=== PATIENT | female | born 1955 | race Caucasian/White ===

== ENCOUNTER 2024-04-03 08:50 | Emergency (ER) | payer MEDICARE, MEDICAID, SELFPAY ==
[2024-04-03 08:52] VITALS: BP 177/80; PULSE 82; RESP 18; TEMP 36.4; O2SAT 97; BMI 31.1
--- NOTE | 2024-04-03 09:27 | XR_ITS ---
PROCEDURE INFORMATION: Exam: XR Right Femur Exam date and time: 04/03/2024 10:02 AM Age: 69 years old Clinical indication: Injury or trauma; Other: Pain after fall TECHNIQUE: Imaging protocol: Radiologic exam of the right femur. Views: 2 views. COMPARISON: CT BONY PELVIS 04/03/2024 9:55 AM FINDINGS: Bones/joints: Unremarkable. No acute fracture. Soft tissues: Unremarkable. IMPRESSION: No acute findings.
--- NOTE | 2024-04-03 09:27 | CT_ITS ---
PROCEDURE INFORMATION: Exam: CT Pelvis Without Contrast, Skeleton Exam date and time: 04/03/2024 9:55 AM Age: 69 years old Clinical indication: Injury or trauma; Other: Bilateral hip pain after fall; Additional info: Fall, b/l hip r>l TECHNIQUE: Imaging protocol: Computed tomography of the pelvis without contrast. Exam focused on the skeleton. Radiation optimization: All CT scans at this facility use at least one of these dose optimization techniques: automated exposure control; mA and/or kV adjustment per patient size (includes targeted exams where dose is matched to clinical indication); or iterative reconstruction. COMPARISON: CT LUMBAR SPINE WO CON 04/03/2024 9:52 AM FINDINGS: Bones/joints: Unremarkable. No acute fracture. No dislocation. Soft tissues: Unremarkable. IMPRESSION: No acute findings.
--- NOTE | 2024-04-03 09:27 | CT_ITS ---
PROCEDURE INFORMATION: Exam: CT Lumbar Spine Without Contrast Exam date and time: 04/03/2024 9:52 AM Age: 69 years old Clinical indication: Pain; Other: Fall; Additional info: Fall, midline pain TECHNIQUE: Imaging protocol: Computed tomography of the lumbar spine without contrast. Radiation optimization: All CT scans at this facility use at least one of these dose optimization techniques: automated exposure control; mA and/or kV adjustment per patient size (includes targeted exams where dose is matched to clinical indication); or iterative reconstruction. COMPARISON: No relevant prior studies available. FINDINGS: Bones/joints: There is preservation of vertebral alignment. There is preservation of vertebral body heights. Facet joints are aligned. No acute fracture. L1-L2: No significant disc bulge or herniation. No severe spinal canal stenosis. No significant neural foraminal narrowing. L2-L3: No significant disc bulge or herniation. No severe spinal canal stenosis. No significant neural foraminal narrowing. L3-L4: No significant disc bulge or herniation. No severe spinal canal stenosis. No significant neural foraminal narrowing. L4-L5: Diffuse disc bulge and facet arthropathy noted. There is mild spinal canal stenosis. There is moderate bilateral neural foraminal narrowing. L5-S1: Diffuse disc bulge and facet arthropathy noted. No significant spinal canal stenosis. There is mild bilateral neural foraminal narrowing. Soft tissues: Unremarkable. IMPRESSION: No acute fracture. No traumatic subluxation.
[2024-04-03 09:30] VITALS: BP 153/73; PULSE 82; O2SAT 97
--- NOTE | 2024-04-03 09:34 | ED_ITS ---
Discharge Plan Disposition Chief Complaint: PAIN Prescriptions Prescriptions: New lidocaine 5 % adhesive patch,medicated 1 patch topical DAILY Qty: 15 0RF Rx Instructions: leave on most painful area for up to 12 hrs methocarbamol 500 mg tablet 1,000 mg PO Q8H PRN (Reason: muscle pain and spasm) Qty: 24 0RF Referrals Follow up/Referrals: Kyrie Wilde II, [Primary Care Provider] - See instructions Activity Restrictions/Add. Instructions Additional Instructions/Restrictions: At this time it was felt you are safe to be discharged home. If new or worsening symptoms please do not hesitate to return the emergency department. If your symptoms persist in the next 5 to 7 days please follow-up with your family doctor for possible physical therapy evaluation. For pain please take Tylenol 1000 mg every 6 hours as needed and combine with your prescriptions as prescribed. Clinical Impressions Clinical Impression: Acute hip pain, Fall Print Language Print Language: German Discharge ED Provider: Marvin Raya General Adult HPI General Chief complaint: PAIN Stated complaint: AO 03/31/24, rt hip inj Time Seen by Provider: 04/03/24 09:03 Mode of Arrival: Ambulatory Source of Information: Patient and Spouse Limitations: No Limitations Description of Symptoms (Recalled from ER Triage Doc. by RN): r hip and pelvis pain after a fall History of Present Illness HPI narrative: Patient is a 69-year-old female who presents emergency department for evaluation of traumatic hip pain. History is obtained by patient at bedside. A few days ago she was loading a refrigerator into a vehicle when she fell on her right hip. This originally resulted in right lateral hip pain that was worse with walking or movement however now she has bilateral hip pain. She is still able to bear weight however due to persistent symptoms she presents here for continued evaluation. No other trauma. No head strike or loss of consciousness. The refrigerator did not land on her. She does not take anti coagulants. Related Data Previous Rx's ?Medication ?Instructions ?Recorded lidocaine 5 % topical patch 1 patch topical DAILY pain #15 ea 04/03/24 methocarbamol 500 mg tablet 1,000 mg (2 x 500 mg) PO Q8H PRN 04/03/24 muscle pain and spasm #24 tabs Allergies Allergy/AdvReac Type Severity Reaction Status Date / Time No Known Allergies Allergy Unverified 05/01/17 14:17 [facility] Disclaimer: The information contained in this section may have been updated after the patient was seen, as this information can be updated by other users. Social History Smoking Status: Never smoker alcohol intake: former current occupational status: other ROS Obtained: Yes Systems reviewed as appropriate & no additional complaints except as documented Physical Exam General General appearance: alert and in no apparent distress Head Head exam: atraumatic and normocephalic Eye Eye exam: Present PERRL and EOMI ENT ENT exam: Present mucous membranes moist Neck Neck exam: Present normal inspection Chest Chest inspection: Present normal inspection and symmetric chest wall rise Respiratory Respiratory exam: Present normal lung sounds bilaterally; Absent respiratory distress Cardiovascular Cardiovascular exam: Present regular rate and normal rhythm Abdominal Exam Abdominal exam: Present soft; Absent tenderness Extremities Exam Extremities exam: Present normal inspection and other (Bilateral hip tenderness right greater than left, extensor mechanism intact bilaterally. No tenderness over the midshaft femur distally throughout the bilateral lower extremities. No upper extremity tenderness.) Back Exam Back exam: Present tenderness (No tenderness over the C or T-spine. There is midline tenderness over the L-spine.) Neurological Exam Neurological exam: Present alert and CN II-XII intact; Absent motor sensory deficit Psychiatric Psychiatric exam: Present normal affect Skin Skin exam: Present warm and dry Medical Decision Making Medical Records Screening: Per USPSTF and CDC recommendations, given the prevalence of disease in our [place]ori on, it is our hospital?s policy to screen for HIV and viral Hepatitis for all patients aged 18 and over and those with ongoing risk factors. Pranav Inquiry Pt receiving controlled substance: No Vital Signs: 04/03/24 08:52 04/03/24 09:30 04/03/24 10:42 Temperature 97.6 F Temperature Source Oral Pulse Rate 82 Pulse Rate [Right] 82 Respiratory Rate 18 Blood Pressure 153/73 H 128/108 H Blood Pressure [Right Arm] 177/80 H Blood Pressure Mean 103 113 Blood Pressure Mean [Right Arm] 112 02 Sat by Pulse Oximetry 97 97 95 Oxygen Delivery Method Room Air Orders (Tests/Meds): ED MEDICATIONS Discontinued Medications Generic Name Dose Route Start Last Admin Trade Name Freq PRN Reason Stop Dose Admin Acetaminophen 1,000 mg 04/03/24 09:31 04/03/24 09:45 Acetaminophen 500mg Tab PO 04/03/24 09:32 1,000 mg ONCE ONE Administration Ibuprofen 600 mg 04/03/24 09:31 04/03/24 09:46 Ibuprofen 600 Mg Tablet PO 04/03/24 09:32 600 mg ONCE ONE Administration Lidocaine 1 each 04/03/24 09:31 04/03/24 09:46 Lidocaine 5% Transdermal Patch TP 04/03/24 09:32 1 each ONCE ONE Administration Methocarbamol 1,000 mg 04/03/24 09:33 04/03/24 09:46 Methocarbamol 500mg Tablet PO 04/03/24 09:34 1,000 mg ONCE ONE Administration ORDERS Category Date Time Status CT bony pelvis Stat Cat Scan 04/03/24 09:[address] lumbar spine wo con Stat Cat Scan 04/03/24 09:27 Completed Femur XR right 2 views [XR femur RT 2V] Stat Exams 04/03/24 09:27 Completed HIV (1&2) Antibody Rapid Stat Lab 04/03/24 09:03 Ordered Hep C Ab with Reflex to RNA Stat Lab 04/03/24 09:03 Ordered Medical Decision Narrative: In summary patient is a 69-year-old female past medical history described above who presents emergency department for evaluation of traumatic hip pain. Patient is hemodynamically stable nontoxic-appearing upon arrival, afebrile. Based on history and physical exam trauma survey will be conducted with noncontrasted CT scan of the lumbar spine and bony pelvis. Plain film the right femur will be obtained. Initial inventions include multimodal pain control. Plain film informally interpreted by me, no acute displaced fracture. Formal read shows no acute findings, CT lumbar spine and bony pelvis all shows no acute pathology. Upon repeat evaluation patient was well-appearing and ambulatory. Given this I think patient is appropriate for outpatient management at this time we will follow-up with PCP for possible physical therapy and further investigation. Critical Care Critical Care Time Critical Care Time: No
[2024-04-03] MEDS: ACETAMINOPHEN 500MG TAB 1000 MG PO (09:45)
[2024-04-03] MEDS: IBUPROFEN 600 MG TABLET PO (09:46)
[2024-04-03] MEDS: METHOCARBAMOL 500MG TABLET 1000 MG PO (09:46)
[2024-04-03] MEDS: LIDOCAINE 5% TRANSDERMAL PATCH 1 EACH TP (09:46)
[2024-04-03 10:42] VITALS: BP 128/108; O2SAT 95
[2024-04-03 11:00] VITALS: BP 139/86; PULSE 73; O2SAT 94
[2024-04-03 11:31] VITALS: BP 186/95; PULSE 78; RESP 18; TEMP 36.4; O2SAT 98
== END 2024-04-03 11:42 | disposition home or self-care (01) ==
PROVIDERS: Emergency Provider Emergency Medicine; PCP Student in an Organized Health Care Education/Training Program
DX: M25.551 Pain in right hip (principal); M25.552 Pain in left hip; W19.XXXA Unspecified fall, initial encounter; Y93.9 Activity, unspecified; Y92.9 Unspecified place or not applicable
CPT/HCPCS: 72131; 72192; 73552; 99284